=== PATIENT | female | born 1965 | race Hispanic/Latino ===

== ENCOUNTER 2021-01-27 08:36 | Emergency (ER) | payer SELFPAY ==
[~2021-01-27] VITALS: Ht 160 cm; Wt 99.8 kg
[2021-01-27 09:00] VITALS: BP 208/106
[2021-01-27 09:22] LABS: BASOPHILS % (AUTO) 0.8 % (0.0-5.0); HEMATOCRIT 41.8 % (36-48); LYMPHOCYTES % (AUTO) 22.7 % (21.0-51.0); MEAN CORPUSCULAR HEMOGLOBIN 31.5 pg (27.0-33.0); MEAN CORPUSCULAR HGB CONC 33.7 g/dL (32.0-36.0); MEAN CORPUSCULAR VOLUME 93.5 fL (79-99); MONOCYTES % (AUTO) 18.1 % (3.0-13.0); NEUTROPHILS % (AUTO) 55.1 % (40.0-77.0); PLATELET COUNT (AUTO) 204 K/uL (130-400); RED BLOOD CELL COUNT(AUTO) 4.47 MIL/uL (4.00-5.50); RED CELL DISTRIBUTION WIDTH 12.8 % (11.0-15.5); WHITE BLOOD COUNT (AUTO) 3.7 K/uL (4.8-10.8)
[2021-01-27] MEDS ORDERED: LOSARTAN 50 MG TABLET ONE (09:27)
[2021-01-27 09:30] LABS: CREATININE 0.9 mg/dL (0.5-1.5); POTASSIUM 3.8 mmol/L (3.5-5.1)
[2021-01-27] MEDS ORDERED: ACETAMINOPHEN 500 MG TABLET PO SCH (09:30)
[2021-01-27] MEDS ORDERED: LOSARTAN 100 MG TABLET PO SCH (09:30)
[2021-01-27 09:35] LABS: ALBUMIN 3.6 g/dL (3.5-5.0); BILIRUBIN,TOTAL 0.3 mg/dL (0.2-1.0); TOTAL PROTEIN, SERUM 7.9 g/dL (6.0-8.3)
[2021-01-27 09:43] LABS: INR 1.05 (0.85-1.15); PROTHROMBIN TIME 11.4 SEC (9.6-11.6)
[2021-01-27 09:44] LABS: PARTIAL THROMBOPLASTIN TIME 28.2 SEC (26.3-35.5)
[2021-01-27 10:12] LABS: APPEARANCE,URINE Clear (CLEAR); BILIRUBIN,URINE Negative (NEGATIVE); COLOR,URINE Yellow (YELLOW); GLUCOSE, URINE (UA) Negative (NEGATIVE); KETONES,URINE Negative (NEGATIVE); LEUKOCYTE ESTERASE ,URINE Negative (NEGATIVE); NITRATE,URINE Negative (NEGATIVE); OCCULT BLOOD,URINE Negative (NEGATIVE); PH,URINE 6.5 (5.0-8.0); PROTEIN,URINE Negative (NEGATIVE); UROBILINOGEN,URINE 0.2 mg/dL (0.2-1.0)
[2021-01-27 10:15] VITALS: BP 156/76
[2021-01-27] MEDS ORDERED: VIT500TA8 PO (11:06)
[2021-01-27] MEDS ORDERED: ZINC220T4 PO (11:06)
[2021-01-27] MEDS ORDERED: VIT1TABL66 PO (11:06)
== END 2021-01-27 11:25 | disposition home or self-care (01) ==
LOC: EDH 08:36
DX: U07.1 COVID-19 (principal); I10 Essential (primary) hypertension; E78.00 Pure hypercholesterolemia, unspecified; Z79.899 Other long term (current) drug therapy
CPT/HCPCS: 36415; 71045; 80053; 81003; 85025; 85378; 85610; 85730; 87040 ×2; 87635; 87804 ×2; 87880; 93005; 99285; C9803

== ENCOUNTER 2021-02-03 16:30 | Emergency (ER) | payer OTHER, SELFPAY ==
[~2021-02-03] VITALS: Ht 157.5 cm; Wt 9.1 kg
[~2021-02-03 16:30] MED LIST: VIT1TABL66 PO; VIT500TA8 PO; ZINC220T4 PO
[2021-02-03 17:33] LABS: APPEARANCE,URINE Cloudy (CLEAR); BILIRUBIN,URINE Negative (NEGATIVE); COLOR,URINE Dark Yellow (YELLOW); GLUCOSE, URINE (UA) Negative (NEGATIVE); KETONES,URINE Trace mg/dL (NEGATIVE); LEUKOCYTE ESTERASE ,URINE Moderate (NEGATIVE); NITRATE,URINE Negative (NEGATIVE); OCCULT BLOOD,URINE Negative (NEGATIVE); PROTEIN,URINE POS 1+ mg/dL (NEGATIVE)
[2021-02-03 17:58] LABS: BACTERIA,URINE Few /HPF (None Seen); RBC,URINE 0-1 /HPF (0-1)
[2021-02-03 17:59] LABS: SQUAMOUS EPITHELIAL CELL,UR Few /HPF (0-2)
[2021-02-03 18:00] LABS: MUCUS,URINE Few LPF (None Seen)
[2021-02-03] MEDS ORDERED: CEFTRIAXONE 1G VIAL IM ONE (18:00)
[2021-02-03] MEDS ORDERED: PHENAZOPYRIDINE HCL 200 MG TABLET PO ONE (18:00)
[2021-02-03] MEDS ORDERED: CEPH500B PO (18:00)
[2021-02-03] MEDS ORDERED: PHEN-847 PO (18:00)
[2021-02-03] MEDS ORDERED: LIDOCAINE HCL-MPF 1% 2ML VIAL ONE ×2 (18:16→18:18)
[2021-02-03 18:52] VITALS: BP 155/86
== END 2021-02-03 19:00 | disposition home or self-care (01) ==
LOC: EDH 16:30
DX: N39.0 Urinary tract infection, site not specified (principal); I10 Essential (primary) hypertension; E78.00 Pure hypercholesterolemia, unspecified; Z79.899 Other long term (current) drug therapy
CPT/HCPCS: 81001; 87077; 87088; 87186; 96372; 99283; J0696 ×2; J3490 ×2

== ENCOUNTER 2021-03-24 18:09 | Emergency (ER) | payer SELFPAY ==
[~2021-03-24] VITALS: Ht 160 cm; Wt 102.1 kg
[~2021-03-24 18:09] MED LIST changes: +CEPH500B PO; +PHEN-847 PO
[2021-03-24] MEDS ORDERED: KETOROLAC 30MG VIAL (30MG/ML) IM STA (19:49)
[2021-03-24] MEDS ORDERED: ONDANSETRON ODT 4MG TAB SL STA (19:49)
[2021-03-24 21:00] VITALS: BP 165/88
[2021-03-24] MEDS ORDERED: AZIT1PAC PO (21:11)
[2021-03-24] MEDS ORDERED: ONDA4TAB4 PO (21:11)
== END 2021-03-24 21:22 | disposition home or self-care (01) ==
LOC: EDH 18:09
DX: J02.9 Acute pharyngitis, unspecified (principal); R11.2 Nausea with vomiting, unspecified; Z20.822 Contact with and (suspected) exposure to COVID-19; E78.00 Pure hypercholesterolemia, unspecified; I10 Essential (primary) hypertension; Z79.1 Long term (current) use of non-steroidal anti-inflammatories (NSAID); Z79.899 Other long term (current) drug therapy
CPT/HCPCS: 87635; 87804 ×2; 87880; 96372; 99283; C9803; J1885

== ENCOUNTER 2021-08-24 09:57 | Emergency (ER) | payer OTHER ==
[~2021-08-24] VITALS: Ht 160 cm; Wt 104.3 kg
[~2021-08-24 09:57] MED LIST changes: +AZIT1PAC PO; +ONDA4TAB4 PO
[2021-08-24 10:20] LABS: BASOPHILS % (AUTO) 0.7 % (0.0-5.0); HEMATOCRIT 44.1 % (36-48); LYMPHOCYTES % (AUTO) 21.5 % (21.0-51.0); MEAN CORPUSCULAR HEMOGLOBIN 31.9 pg (27.0-33.0); MEAN CORPUSCULAR HGB CONC 33.1 g/dL (32.0-36.0); MEAN CORPUSCULAR VOLUME 96.5 fL (79-99); MONOCYTES % (AUTO) 13.5 % (3.0-13.0); NEUTROPHILS % (AUTO) 62.1 % (40.0-77.0); PLATELET COUNT (AUTO) 241 K/uL (130-400); RED BLOOD CELL COUNT(AUTO) 4.57 MIL/uL (4.00-5.50); RED CELL DISTRIBUTION WIDTH 12.1 % (11.0-15.5); WHITE BLOOD COUNT (AUTO) 5.4 K/uL (4.8-10.8)
[2021-08-24] MEDS ORDERED: ESOM20CA60 PO (10:36)
[2021-08-24 10:38] LABS: INR 1.04 (0.85-1.15); PROTHROMBIN TIME 11.3 SEC (9.6-11.6)
[2021-08-24 10:51] LABS: ALBUMIN 3.6 g/dL (3.5-5.0); BILIRUBIN,TOTAL 0.3 mg/dL (0.2-1.0); CREATININE 0.8 mg/dL (0.5-1.5); TOTAL PROTEIN, SERUM 8.1 g/dL (6.0-8.3)
[2021-08-24 11:07] LABS: B-TYPE NATRIURETIC PEPTIDE 32 pg/mL (0-100)
[2021-08-24 11:29] VITALS: BP 132/70
[2021-08-24 11:43] LABS: APPEARANCE,URINE Clear (CLEAR); BILIRUBIN,URINE Negative (NEGATIVE); COLOR,URINE Yellow (YELLOW); GLUCOSE, URINE (UA) Negative (NEGATIVE); KETONES,URINE Trace mg/dL (NEGATIVE); LEUKOCYTE ESTERASE ,URINE Negative (NEGATIVE); NITRATE,URINE Negative (NEGATIVE); OCCULT BLOOD,URINE Negative (NEGATIVE); PH,URINE 5.5 (5.0-8.0); PROTEIN,URINE Negative (NEGATIVE)
[2021-08-24 12:03] LABS: RBC,URINE 0-1 /HPF (0-1); WBC,URINE None Seen /HPF (0-1)
[2021-08-24 12:04] LABS: BACTERIA,URINE Few /HPF (None Seen)
== END 2021-08-24 11:37 | disposition home or self-care (01) ==
LOC: EDH 09:57
DX: K21.00 Gastro-esophageal reflux disease with esophagitis, without bleeding (principal); I10 Essential (primary) hypertension; E78.00 Pure hypercholesterolemia, unspecified
CPT/HCPCS: 36415; 71045; 80053; 81001; 82550; 83880; 84484; 85025; 85610; 86677; 93005

== ENCOUNTER 2021-08-31 16:14 | Emergency (ER) | payer OTHER ==
[~2021-08-31] VITALS: Ht 162.6 cm; Wt 90.7 kg
[~2021-08-31 16:14] MED LIST changes: +ESOM20CA60 PO
[2021-08-31 16:15] VITALS: BP 179/97
[2021-08-31] MEDS ORDERED: GUAIFENESIN-DM 200/20 MG 10 ML PO ONE (16:30)
[2021-08-31] MEDS ORDERED: ACETAMINOPHEN 500 MG TABLET PO ONE (16:30)
[2021-08-31] MEDS ORDERED: BENZOCAINE/MENTH/CETYLPYRD CL 1 EACH LOZENGE MM STA (16:46)
[2021-08-31 16:48] LABS: APPEARANCE,URINE Clear (CLEAR); BILIRUBIN,URINE Negative (NEGATIVE); COLOR,URINE Yellow (YELLOW); GLUCOSE, URINE (UA) Negative (NEGATIVE); KETONES,URINE Trace mg/dL (NEGATIVE); LEUKOCYTE ESTERASE ,URINE Negative (NEGATIVE); NITRATE,URINE Negative (NEGATIVE); OCCULT BLOOD,URINE Negative (NEGATIVE); PROTEIN,URINE Negative (NEGATIVE)
[2021-08-31] MEDS ORDERED: AZIT1PAC7 PO (17:12)
[2021-08-31] MEDS ORDERED: D-ME118S47 PO (17:12)
[2021-08-31] MEDS ORDERED: LISI10TA24 PO (17:12)
[2021-08-31] MEDS ORDERED: ROSU5TAB12 PO (17:12)
[2021-08-31] MEDS ORDERED: DEXAMETHASONE SOD PHOSPHATE 4 MG/ML 1ML VIAL IM ONE (17:30)
== END 2021-08-31 17:22 | disposition home or self-care (01) ==
LOC: EDH 16:14
DX: R05.9 Cough, unspecified (principal); R09.81 Nasal congestion; R50.9 Fever, unspecified; Z20.822 Contact with and (suspected) exposure to COVID-19; E78.00 Pure hypercholesterolemia, unspecified; I10 Essential (primary) hypertension
CPT/HCPCS: 81003; 87635; 87804 ×2; 87880; 96372; 99284; C9803; J1100

== ENCOUNTER 2021-10-08 07:08 | Emergency (ER) | payer OTHER ==
[~2021-10-08] VITALS: Ht 160 cm; Wt 108.9 kg
[~2021-10-08 07:08] MED LIST changes: +AZIT1PAC7 PO; +D-ME118S47 PO; +LISI10TA24 PO; +ROSU5TAB12 PO
[2021-10-08] MEDS ORDERED: LACTATED RINGERS 1000ML 1,000 ML IV ONE ×2 (07:30→07:47)
[2021-10-08 07:42] LABS: BASOPHILS % (AUTO) 0.8 % (0.0-5.0); EOSINOPHILS % (AUTO) 1.1 % (0.0-8.0); HEMATOCRIT 44.8 % (36-48); LYMPHOCYTES % (AUTO) 12.5 % (21.0-51.0); MEAN CORPUSCULAR HEMOGLOBIN 32.8 pg (27.0-33.0); MEAN CORPUSCULAR HGB CONC 33.9 g/dL (32.0-36.0); MEAN CORPUSCULAR VOLUME 96.6 fL (79-99); MONOCYTES % (AUTO) 11.4 % (3.0-13.0); NEUTROPHILS % (AUTO) 73.9 % (40.0-77.0); PLATELET COUNT (AUTO) 258 K/uL (130-400); RED BLOOD CELL COUNT(AUTO) 4.64 MIL/uL (4.00-5.50); RED CELL DISTRIBUTION WIDTH 12.4 % (11.0-15.5); WHITE BLOOD COUNT (AUTO) 6.6 K/uL (4.8-10.8)
[2021-10-08] MEDS ORDERED: HYDRALAZINE 20MG/ML VIAL ONE (07:46)
[2021-10-08] MEDS ORDERED: HYDRALAZINE 20MG/ML VIAL IV ONE ×2 (08:00→09:30)
[2021-10-08 08:10] LABS: ALBUMIN 3.5 g/dL (3.5-5.0); BILIRUBIN,TOTAL 0.7 mg/dL (0.2-1.0); CREATININE 0.9 mg/dL (0.5-1.5); POTASSIUM 3.6 mmol/L (3.5-5.1)
[2021-10-08 09:10] LABS: AMPHET/METH SCREEN,URINE NEGATIVE (NEGATIVE); BARBITURATE SCREEN, URINE NEGATIVE (NEGATIVE); BENZODIAZEPINES SCREEN,URINE NEGATIVE (NEGATIVE); CANNABINOID SCREEN,URINE NEGATIVE (NEGATIVE); COCAINE SCREEN,URINE NEGATIVE (NEGATIVE); OPIATE SCREEN,URINE NEGATIVE (NEGATIVE); PHENCYCLIDINE SCREEN,URINE NEGATIVE (NEGATIVE)
[2021-10-08 09:15] LABS: APPEARANCE,URINE Clear (CLEAR); BILIRUBIN,URINE Negative (NEGATIVE); COLOR,URINE Yellow (YELLOW); GLUCOSE, URINE (UA) Negative (NEGATIVE); KETONES,URINE Negative (NEGATIVE); LEUKOCYTE ESTERASE ,URINE Negative (NEGATIVE); NITRATE,URINE Negative (NEGATIVE); OCCULT BLOOD,URINE Negative (NEGATIVE); PROTEIN,URINE Negative (NEGATIVE)
[2021-10-08] MEDS ORDERED: MECLIZINE HCL 25 MG TABLET ONE (09:17)
[2021-10-08 09:27] VITALS: BP 176/78
[2021-10-08] MEDS ORDERED: LISI1TAB49 PO (09:28)
[2021-10-08] MEDS ORDERED: MECLIZINE HCL 12.5 MG TABLET PO ONE (09:30)
== END 2021-10-08 09:41 | disposition home or self-care (01) ==
LOC: EDH 07:08
DX: I10 Essential (primary) hypertension (principal); Z91.14 Patient's other noncompliance with medication regimen; E78.49 Other hyperlipidemia; Z79.899 Other long term (current) drug therapy
CPT/HCPCS: 36415; 70450; 71045; 80053; 80305; 81003; 84484; 85025; 93005; 96361; 96374; 96376; 99285; J0360 ×2; J7120

== ENCOUNTER 2022-02-24 14:34 | Emergency (ER) | payer BC, OTHER ==
[~2022-02-24] VITALS: Ht 160 cm; Wt 99.8 kg
[~2022-02-24 14:34] MED LIST changes: +LISI1TAB49 PO
[2022-02-24 15:34] LABS: BASOPHILS % (AUTO) 0.6 % (0.0-5.0); EOSINOPHILS % (AUTO) 1.2 % (0.0-8.0); HEMATOCRIT 37.6 % (36-48); LYMPHOCYTES % (AUTO) 18.6 % (21.0-51.0); MEAN CORPUSCULAR HEMOGLOBIN 32.5 pg (27.0-33.0); MEAN CORPUSCULAR HGB CONC 34.6 g/dL (32.0-36.0); MONOCYTES % (AUTO) 17.6 % (3.0-13.0); NEUTROPHILS % (AUTO) 61.8 % (40.0-77.0); PLATELET COUNT (AUTO) 170 K/uL (130-400); RED CELL DISTRIBUTION WIDTH 12.4 % (11.0-15.5)
[2022-02-24 15:59] LABS: ALBUMIN 3.2 g/dL (3.5-5.0); TOTAL PROTEIN, SERUM 7.1 g/dL (6.0-8.3)
[2022-02-24 16:01] LABS: B-TYPE NATRIURETIC PEPTIDE 33 pg/mL (0-100)
[2022-02-24] MEDS ORDERED: 0.9%NACL 1000ML 1,000 ML IV ONE ×2 (17:00→17:06)
[2022-02-24] MEDS ORDERED: POTASSIUM BICARB/CIT AC 25 MEQ TABLET.EFF PO ONE (17:00)
[2022-02-24] MEDS ORDERED: IOHEXOL 350 MG/ML 100ML INFUS..BTL IV ONE (18:27)
[2022-02-24] MEDS ORDERED: ALBUHFA IH (19:05)
[2022-02-24] MEDS ORDERED: DOXY-336 PO (19:05)
[2022-02-24 19:10] VITALS: BP 160/76
== END 2022-02-24 19:12 | disposition home or self-care (01) ==
LOC: EDH 14:34
DX: J20.9 Acute bronchitis, unspecified (principal); R06.09 Other forms of dyspnea; Z20.822 Contact with and (suspected) exposure to COVID-19; I10 Essential (primary) hypertension; E78.00 Pure hypercholesterolemia, unspecified; Z79.899 Other long term (current) drug therapy
CPT/HCPCS: 99284; 96360; 71270; 71045; 87635; 84484; 80053; 83880; 85025; 85378; 87804 ×2; 36415; 93005; C9803; J7030; Q9967

== ENCOUNTER 2022-06-25 14:45 | Emergency (ER) | payer BC ==
[~2022-06-25] VITALS: Ht 160 cm; Wt 81.6 kg
[~2022-06-25 14:45] MED LIST changes: +ALBUHFA IH; +DOXY-469 PO
[2022-06-25 17:17] LABS: APPEARANCE,URINE CLEAR (CLEAR); BILIRUBIN,URINE NEGATIVE (NEGATIVE); COLOR,URINE YELLOW (YELLOW); GLUCOSE, URINE (UA) NEGATIVE (NEGATIVE); KETONES,URINE NEGATIVE (NEGATIVE); LEUKOCYTE ESTERASE ,URINE NEGATIVE Leu/uL (NEGATIVE); NITRATE,URINE NEGATIVE (NEGATIVE); PH,URINE 5.5 (5.0-8.0); PROTEIN,URINE 20 mg/dL (NEGATIVE)
[2022-06-25 17:20] LABS: MUCUS,URINE RARE LPF (None Seen); SQUAMOUS EPITHELIAL CELL,UR RARE /HPF (0-2); WBC,URINE 0-1 /HPF (0-1)
[2022-06-25] MEDS ORDERED: BENZ-39 PO (17:54)
[2022-06-25 17:56] VITALS: BP 141/64
== END 2022-06-25 18:00 | disposition home or self-care (01) ==
LOC: EDH 14:45
DX: J06.9 Acute upper respiratory infection, unspecified (principal); R05.9 Cough, unspecified; Z20.822 Contact with and (suspected) exposure to COVID-19; E78.5 Hyperlipidemia, unspecified; Z79.899 Other long term (current) drug therapy; Z98.890 Other specified postprocedural states
CPT/HCPCS: 99283; 87635; 87880; 87804 ×2; 81001; C9803

== ENCOUNTER 2022-10-15 16:06 | Emergency (ER) | payer BC ==
[~2022-10-15] VITALS: Ht 160 cm; Wt 99.8 kg
[~2022-10-15 16:06] MED LIST changes: +BENZ-39 PO
[2022-10-15 16:28] VITALS: BP 179/90
[2022-10-15] MEDS ORDERED: ESOM40CA PO (17:26)
[2022-10-15] MEDS ORDERED: DICYCLOMINE HCL 10 MG/5 ML ML PO ONE (17:30)
[2022-10-15] MEDS ORDERED: PANTOPRAZOLE 40 MG TAB DR PO SCH (17:30)
[2022-10-15] MEDS ORDERED: MAG/ALUM/SIMETH 30 ML UDCUP PO ONE (17:30)
[2022-10-15] MEDS ORDERED: LIDOCAINE HCL 2% VISCOUS 15 ML UDCUP PO ONE (17:30)
== END 2022-10-15 17:57 | disposition home or self-care (01) ==
LOC: EDH 16:06
DX: K20.90 Esophagitis, unspecified without bleeding (principal); Z79.899 Other long term (current) drug therapy; Z90.710 Acquired absence of both cervix and uterus